=== PATIENT | male | born 1965 ===

== ENCOUNTER → 2017-08-12 | Day surgery (SDC) | payer OTHER ==
[~2017-08-12] MED LIST: ABILIFY5 MG PO; CLONAZEPAM0.5 MG PO; ISOSORBIDE DINI20 MG PO; TOPROL XL25 MG PO; [UNRECOGNIZED DRUG - OTHER] PO
== END | disposition home or self-care (01) ==
LOC: ADM 07-31 11:45 → CIR.AMB 08-05 11:45
DX: S63.392A Traumatic rupture of other ligament of left wrist, initial encounter (principal)